=== PATIENT | female | born 1995 | race Caucasian/White ===

== ENCOUNTER 2018-01-13 15:15 | Emergency (ER) | payer OTHER ==
[~2018-01-13] VITALS: Ht 172.7 cm; Wt 80.7 kg
[2018-01-13 15:28] VITALS: Ht 172.7 cm; Wt 80.7 kg
[2018-01-13 16:59] VITALS: BP 133/77
== END 2018-01-13 16:59 | disposition home or self-care (01) ==
LOC: ED 15:15
DX: J20.9 Acute bronchitis, unspecified (principal)